=== PATIENT | female | born 1975 | race Caucasian/White ===

== ENCOUNTER 2016-09-06 11:33 | Day surgery (SDC) | payer BC ==
[2016-09-05 13:10] LABS: HEMATOCRIT 34.5 % (36.0-48.0); HEMOGLOBIN 11.8 g/dL (12.0-16.0)
[2016-09-05 13:23] LABS: BUN (BLOOD UREA NITROGEN) 14 MG/DL (6-23); CALCIUM, SERUM 9.3 MG/DL (8.5-10.4); CHLORIDE, SERUM 102 MMOL/L (96-112); CO2 (CARBON DIOXIDE) 29 MMOL/L (24-34); CREATININE 0.66 MG/DL (0.55-1.02); GFR AFRICAN AMERICAN 128 ML/MIN (>=60); GFR NON AFRICAN AMERICAN 110 ML/MIN (>=60); POTASSIUM, SERUM 4.4 MMOL/L (3.5-5.3); SODIUM, SERUM 138 MMOL/L (135-148)
[2016-09-05 13:24] LABS: GLUCOSE, SERUM 93 MG/DL (60-99)
--- NOTE | ~2016-09-06 | OP ---
Record Of Operation [facility] [address] [place]. [address] NAME: YULIYA FIGUEROA : 77 STATUS : [facility]#: [id number] AGE: 41 ADM/REG DATE : 09/06/16 MR#: [id number] REPORT SERV DATE: 09/06/16 DICTATED BY: JAKUB MURRELL DATE: 09/06/16 REPORT STATUS : Draft TRANSCRIBED BY: MODL DATE: 09/06/16 DATE OF PROCEDURE: 09/06/2016 PREOPERATIVE DIAGNOSES: 1. Right hip labral tear. 2. Right hip femoroacetabular impingement. PROCEDURE: 1. Right hip arthroscopic labral repair. 2. Right hip arthroscopic CAM femoroplasty. SURGEON: Jakub Murrell MD. ANESTHESIA: General. ESTIMATED BLOOD LOSS: 10. IMPLANTS: Three suture anchors. SPECIMEN: None. ANTIBIOTICS: Ancef was given prior to incision. HISTORY: The patient is a 41-year-old female, who has longstanding history of right hip pain. We discussed risks and benefits of surgery with her. She elected for surgery. We diagnosed her with a labral tear and femoral acetabular impingement. Clinical exam and MRI confirmed that. After we discussed the risks including cardiopulmonary complication with anesthesia, damage surrounding tissues, infection, continued pain, failure of repair, she elected to proceed. OPERATIVE NOTE: The patient was seen in the preoperative area, consented, and marked. We answered all questions she had to her satisfaction. She was then taken back to the operative suite, placed in supine position with general anesthesia, and prepped and draped the right hip in sterile fashion. We then paused to perform a time-out confirming the correct patient, procedure, diagnosis, and extremity. We then put her on the traction table, pull traction, and then got our preoperative x-rays. After x-rays were taken, we then prepped and draped the right leg in sterile fashion. First, pull traction on the right leg and I then made an anterolateral portal based on spinal needle localization and use of fluoroscopy. Once I made our anterolateral portal, I made the anterior portal based on spinal needle localization. I then used a Umbarger blade to make an interportal capsulotomy. Once that was completed, I examined the hip, the labrum had a tearing at the base of her labrum, the superior and portion of the labrum going laterally from 1 to 3 o'clock. Her cartilage was intact. No other abnormalities inside the hip or intra-articular surface. We then made the distal anterolateral portal and then accessory portal for our placement of our anchors. I used a motor bus driver and a bur to lift the capsule up off the acetabulum behind the labrum and then used a bur to freshen the bone around the adjacent to the labrum. When that Record Of Operation [address] [place]. [address] NAME: YULIYA FIGUEROA : 77 STATUS : [facility] PAT#: [id number] AGE: 41 ADM/REG DATE : 09/06/16 MR#: [id number] REPORT SERV DATE: 09/06/16 DICTATED BY: JAKUB MURRELL DATE: 09/06/16 REPORT STATUS : Draft TRANSCRIBED BY: SETH DATE: 09/06/16 was completed, I took about a millimeter bone all the way around the acetabulum. Once that was completed, placed three suture anchors around the acetabular rim and passed our sutures around the labrum repairing the labrum back to the acetabulum. Once our labrum repair was complete, I elected the traction off and we regained our suction seal. I then placed sutures in the capsule, pulling traction back on the capsule to expose the femoral neck. I then took it through range of motion and used fluoroscopy to access the CAM lesion and identify the CAM lesion, then used a bur to resect the CAM lesion and then took her through range of motion to confirm that I had resected appropriate portion of the CAM lesion. When that was completed, we repaired the capsule back with 2 permanent sutures closing the capsule. We then exited the hip, closed the wounds. She was awakened with no complications, taken to the PACU in stable condition. POSTOPERATIVE PLAN: She will be discharged home. Follow up in one week. She will be touchdown weightbearing with crutches. DEVAN/SETH Jakub Murrell MD / [id number] CC: MD Armaan Ashby M.D.
[~2016-09-06 11:33] MED LIST: COZ50 PO; VITAMINS
== END 2016-09-06 20:34 | disposition home or self-care (01) ==
LOC: SDC 11:33
PROVIDERS: Orthopaedic Surgery Sports Medicine
PROC: 0SQ94ZZ Repair Right Hip Joint, Percutaneous Endoscopic Approach (ICD-10-PCS; 2016-09-06)
PROC: 0QB64ZZ Excision of Right Upper Femur, Percutaneous Endoscopic Approach (ICD-10-PCS; principal; 2016-09-06 14:30)
DX: S73.191A Other sprain of right hip, initial encounter (principal); M25.851 Other specified joint disorders, right hip; F41.9 Anxiety disorder, unspecified; I10 Essential (primary) hypertension; Z88.5 Allergy status to narcotic agent; Z88.0 Allergy status to penicillin; Z79.899 Other long term (current) drug therapy; Z98.51 Tubal ligation status; Z98.890 Other specified postprocedural states
CPT/HCPCS: 80048; 84703; 85014; 85018; 88304; 93005; A9270-GY; C1713; J0690; J1170; J2250; J2370; J2405; J2550; J2710; J3010